=== PATIENT | female | born 1955 | race Caucasian/White ===

== ENCOUNTER → 2017-07-11 | Day surgery (SDC) | payer OTHER ==
[~2017-07-11] MED LIST: ASPI81TA82 PO; BUPIVACAINE HCL PF 0.5% 10 ML VIAL ONE; ENAL10TA7 PO; HYDR-2768 PO; ISOSULFAN BLUE 50 MG/5 ML VIAL SQ ONE; KETOROLAC TROMETHAMINE 30 MG/ML (IVP) VIAL ONE; LACTATED RINGER'S 1000 ML INJ 1,000 ML ONE; MEPERIDINE HCL 50 MG/ML VIAL ONE; MIDAZOLAM HCL 2 MG/2 ML VIAL ONE; ONDANSETRON HCL 4 MG/2 ML VIAL IV PUSH ONE; PROPOFOL 200 MG/20 ML AMP IV ONE; SODIUM CHLORIDE 0.9% INJ 10 ML ONE; VITA20003 PO; Z.0.COMMODE-3:1; Z.0.CPM; Z.0.WALKERFRONT; ceFAZolin 2 GM PREMIX 50 ML ONE; oxyCODONE/ACETAMINOPHEN 5 MG/325 MG TAB ONE
--- NOTE | 2017-07-11 15:20 | RADONCENDT ---
END OF TREATMENT SUMMARY PRIMARY REFERRING PHYSICIAN: Dr. Aislinn Chavez CC: Dr. Aislinn Chavez DIAGNOSIS: Primary C50.112 - Malignant neoplasm of central portion of left female breast, Diagnosed 06/30/2017 (Active) PRESCRIPTION AND TREATMENT: 2000 cGy to surface of applicator- TREATED PLAN FRACTIONS AND DATES: Course: One fraction delivered on 07/11/2017 TOLERANCE: Patient completed treatment without complications. 3.5 cm cone. 20 Gy to surface. FOLLOW UP PLAN: Patient to be seen in 2-4 weeks. Brennon Casillas MD 07/11/2017 3:19:40 PM This report was verified and signed electronically [facility] [address] [place] [address] RADIATION ONCOLOGY END OF TREATMENT SUMMARY Date: 07/11/2017 Patient Name: Cyn Wright Date of : 1955 Age: 61 Sex: Female
--- NOTE | 2017-07-11 15:21 | RADONCOP ---
OPERATIVE REPORT DATE OF SURGERY: 07/11/2017 REFERRING PHYSICIAN: Dr Aislinn Chavez PREOPERATIVE DIAGNOSIS: C50.112 - Malignant neoplasm of central portion of left female breast, Diagnosed 06/30/2017 (Active) POSTOPERATIVE DIAGNOSIS: C50.112 - Malignant neoplasm of central portion of left female breast, Diagnosed 06/30/2017 (Active) PROCEDURE: Intraoperative Radiation Therapy to the . SURGEON: Aislinn Chavez ANESTHESIA: General ESTIMATED BLOOD LOSS: Minimal INDICATIONS: Patient is a 61 year old female presenting with . She has elected to receive targeted intraoperative radiation therapy to the . DESCRIPTION OF PROCEDURE: Patient was taken to the operating room and placed on the table in the supine position. Following induction of general anesthesia, the and arm were prepped and draped sterilely. Ultrasound was performed of the breast to document the location of the breast malignancy. The wound was prepared for intraoperative radiation therapy. Based on the diameter of the cavity, a 3.5 cm radiation applicator was selected for the delivery of intraoperative radiation therapy. The applicator was then sterilely mounted onto the Intrabeam Stand. Retracting sutures were placed within the skin to be used to retract the skin edges away from the radiation source. The 3.5 cm Radiation applicator was then sterilely inserted into the wound. The superficial purse-string suture was tied down. Ultrasound was performed of the breast to document conformity of the surgical margins and the distance from the applicator to the skin surface (> 1.4 cm). The retracting sutures were then secured and a moistened lap pad was placed on the skin surface, followed by an external radiation barrier. Intraoperative radiotherapy was then initiated by the Radiation Oncologist. Total treatment time was 17 minutes. Upon completion of the intraoperative radiotherapy treatment, the radiation applicator, purse-string sutures and retracting sutures were removed from the wound. The wound was once again irrigated. Hemostasis was confirmed. The patient was then turned back over to the surgeon, Aislinn Chavez in stable condition for completion of surgical procedure. Brennon Casillas MD 07/11/2017 3:20:34 PM This report was verified and signed electronically [facility] [address] [place] [address] RADIATION ONCOLOGY OPERATIVE REPORT Date: 07/11/2017 Patient Name: Cyn Wright
--- NOTE | 2017-07-11 16:25 | TN ---
cc: AISLINN KRAMER DATE OF SURGERY: 07/11/2017 PRINCIPAL DIAGNOSIS Left breast cancer, clinical stage I. PROCEDURE PERFORMED Left breast needle-localized lumpectomy with intraoperative radiation therapy and left axillary sentinel lymph node biopsy. SURGEON Aislinn Kramer MD ANESTHESIA General via LMA device. INDICATION The patient is a 61-year-old female with a newly diagnosed clinical stage I, T1A 4 mm invasive ductal carcinoma at 12 o'clock 3 cm from the nipple which is close to the chest wall. She is interested in intraoperative radiation therapy and now presents for breast conservation surgery. FINDINGS AT THE TIME OF SURGERY Specimen mammogram did demonstrate an intact wire and the density and clip were within the excised tissue. Five sentinel lymph nodes were removed. #1 was not blue and had a count of 142. #2 was not blue and had a count of 111 and #3 was not blue and had a count of 65. [place] lymph node #4 had a count of 45 and was not blue and sentinel lymph node #5 had a count of 943 and was not blue. Touch prep analysis was not performed. PROCEDURE PERFORMED After informed consent was obtained and site verification was performed, the patient was brought to the radiology suite where she underwent needle localization of her previous biopsy site as well as peritumoral radionuclide injection. She was then brought to the major operating room where she underwent general anesthesia via LMA device. The left breast and arm were prepped and draped in sterile fashion and 3 ccs of half-strength Lymphazurin were injected in the subareolar left breast with a 5-minute massage. She received a single dose of IV Ancef and sequential compression hose were placed. 0.5% Marcaine plain was then used to infiltrate the periareolar left breast at 12 o'clock as well as in the axilla at the inferior aspect of the left axillary hairline. A periareolar incision was then created at 12 o'clock using sharp dissection and blunt dissection was then performed until the wire entry point through the skin was identified and secured with a hemostat. The wire was cut off at the skin with pin cutters and a 2-0 Silk transfixion suture was placed at the wire entry point into the breast tissue. However, the breast tissue was somewhat friable and the suture did not hold well. A second 2-0 Silk stitch was placed at the wire entry point into the breast tissue and careful circumferential dissection was performed using electrocautery and sharp dissection around the wire. The specimen was oriented with two sutures anteriorly, one long suture laterally, and one short suture superiorly. The specimen was sent to mammography with the findings as noted and was then sent for permanent pathologic evaluation. Hemostasis was easily obtained with electrocautery and the cavity was noted to conform to a 3-1/2 cm applicator. A 0 Prolene pursestring suture was placed in the subcutaneous tissue approximately 1 cm below the skin. The 3.5 applicator was placed in the lumpectomy cavity and ultrasound evaluation demonstrated that the superior margin was 1.4 cm, the medial margin was 2.9 cm, the lateral margin was 1.4 cm, and the superior margin was 1.2 cm. The applicator was then removed and placed in a sterile drape and secured to the Intrabeam treatment machine. The applicator was again placed in the lumpectomy cavity and the pursestring suture was secured. Two wet laps were placed around the applicator at skin level and two paez were placed around the applicator at the level of the breast skin. Intraoperative radiation therapy was then performed use utilizing the [employer] Intrabeam device. Following completion of treatment, the pursestring suture was cut and the applicator was removed. There was good hemostasis noted. Inspection of the original specimen did demonstrate that the inferior margin was close and this was sharply re-excised with a stitch on the new margin and sent as a separate permanent specimen. The wound was then closed using interrupted 3-0 Vicryl subcutaneous sutures and a 4-0 Monocryl subcuticular suture. Steri-Strips and a sterile dressing were applied. Attention was then turned to the left axilla where an incision was anesthetized at the inferior aspect of the left axillary hairline. Both sharp and electrocautery dissection were performed until the clavipectoral fascia was divided and the level I axilla was entered. There were two low level I sentinel lymph nodes which were close to the chest wall and these were circumferentially dissected free from surrounding structures using the harmonic scalpel with the counts as noted. Some more superior sentinel nodes were also circumferentially dissected free from surrounding structures using the harmonic scalpel and these were sent as sentinel lymph nodes three and four. Clarendon lymph node #5 was a small palpable nodule close to the chest wall near the axillary tail of the breast. This was circumferentially dissected free from surrounding structures using the harmonic scalpel and this had a count of 943. Some adjacent axillary tissue was also sent as a permanent specimen and hemostasis was easily obtained in the axilla with the harmonic scalpel. The wound was then closed using interrupted 3-0 Vicryl subcutaneous sutures and a 4-0 Monocryl subcuticular suture. Steri-Strips and a sterile dressing were applied. The patient tolerated the procedure well with an estimated blood loss which was minimal and she was extubated in the operating room and brought to the recovery room in good condition. All sponge and needle counts were correct at the conclusion of the case. MD JEF Madison/PAVEL /3:31 PM /3:56 PM
== END | disposition home or self-care (01) ==
LOC: ESDC 09:13
PROVIDERS: ATTEND Surgery
DX: C50.112 Malignant neoplasm of central portion of left female breast (principal)
CPT/HCPCS: 00400; 01610; 19125; 38525; 38792; 77290; 77300; 77334; 77370; 77424; 88305; 88307; J0690; J1885; J2175; J2250; J2405; J3010; J7120; Q9968; 77469

== ENCOUNTER → 2017-11-19 | Outpatient (CLI) | payer OTHER ==
[~2017-11-19] MED LIST changes: +ANAS1TAB PO; +ASPI1TAB57 PO; -BUPIVACAINE HCL PF 0.5% 10 ML VIAL ONE; +COMMODE BEDSIDE1 MI1; +D-20TAB3 PO; +ENAL10TA PO; +HYDR25TA5 PO; -ISOSULFAN BLUE 50 MG/5 ML VIAL SQ ONE; -KETOROLAC TROMETHAMINE 30 MG/ML (IVP) VIAL ONE; -LACTATED RINGER'S 1000 ML INJ 1,000 ML ONE; -MEPERIDINE HCL 50 MG/ML VIAL ONE; -MIDAZOLAM HCL 2 MG/2 ML VIAL ONE; -ONDANSETRON HCL 4 MG/2 ML VIAL IV PUSH ONE; -PROPOFOL 200 MG/20 ML AMP IV ONE; -SODIUM CHLORIDE 0.9% INJ 10 ML ONE; +WALKER/ADULT/FO1 MIS; -ceFAZolin 2 GM PREMIX 50 ML ONE; -oxyCODONE/ACETAMINOPHEN 5 MG/325 MG TAB ONE
[2017-11-19 08:54] LABS: HEMATOCRIT 41.5 % (35.0-46.0); HEMOGLOBIN 14.4 GM/DL (11.6-15.3); MEAN CELL VOLUME 92.8 FL (80.0-100.0); MEAN CORPUSCULAR HEMOGLOBIN 32.3 PG (27.0-34.0); MEAN CORPUSCULAR HGB CONC 34.7 % (32.0-36.0); MEAN PLATELET VOLUME 9.1 FL (7.0-11.0); PLATELET COUNT 277 TH/MM3 (150-450); RED BLOOD COUNT 4.47 MIL/MM3 (4.00-5.30); RED CELL DISTRIBUTION WIDTH 14.8 % (11.6-17.2); WHITE BLOOD COUNT 4.8 TH/MM3 (4.0-11.0)
[2017-11-19 08:59] LABS: BILIRUBIN, URINE NEG (NEG); BLOOD, URINE NEG (NEG); GLUCOSE,URINE NEG (NEG); KETONE, URINE NEG (NEG); MUCUS URINE FEW /lpf (OCC); NITRITE,URINE NEG (NEG); PH, URINE 6.5 (5.0-8.5); SQUAMOUS EPITHELIAL CELL URINE 1 /hpf (0-5); TRANSITIONAL EPI CELLS, URINE <1 /hpf; URINE COLOR YELLOW (YELLW/STRAW); URINE LEUKOCYTE ESTERASE SMALL (NEG)
[2017-11-19 09:06] LABS: INTERNATIONAL NORMALIZED RATIO 1.1 RATIO; PROTHROMBIN TIME - PATIENT 11.4 SEC (9.8-11.6)
[2017-11-19 09:25] LABS: ALBUMIN 4.1 GM/DL (3.4-5.0); AST (GOT) 13 U/L (15-37); BICARBONATE 31.1 MEQ/L (21.0-32.0); BLOOD UREA NITROGEN 10 MG/DL (7-18); CALCIUM 9.4 MG/DL (8.5-10.1); CHLORIDE 102 MEQ/L (98-107); CREATININE 0.94 MG/DL (0.50-1.00); GLOMERULAR FILTRATION RATE 61 ML/MIN (>89); GLUCOSE,FASTING 91 MG/DL (74-99); SODIUM (NA) 137 MEQ/L (136-145)
[2017-11-19 09:26] LABS: ALT (GPT) 23 U/L (10-53)
[2017-11-19 09:29] LABS: ALKALINE PHOSPHATASE 97 U/L (45-117); TOTAL BILIRUBIN ADULT 0.4 MG/DL (0.2-1.0); TOTAL PROTEIN 7.8 GM/DL (6.4-8.2)
--- NOTE | 2017-11-20 00:25 | EKG ---
Date Performed: 11/19/2017 Time Performed: 08:11:18 PTAGE: 62 years EKG: Sinus rhythm . rSr'(V1) - probable normal variant Septal T wave changes are nonspecific Borderline ECG PREVIOUS TRACING : 06/04/2016 08.42 Since the prior tracing, there has been no significant kaplan DOCTOR: Moe Clement Interpretating Date/Time 11/20/2017 00:24:23
== END ==
LOC: CPRE 07:51
PROVIDERS: ATTEND Surgery
DX: Z01.812 Encounter for preprocedural laboratory examination (principal); Z01.810 Encounter for preprocedural cardiovascular examination; M79.609 Pain in unspecified limb; R94.31 Abnormal electrocardiogram [ECG] [EKG]
CPT/HCPCS: 36415; 80053; 81001; 85027; 85610; 85730; 93005

== ENCOUNTER 2017-11-25 08:28 | Inpatient (IN) | payer OTHER ==
--- NOTE | 2017-11-20 18:04 | MH ---
cc: Sujatha SUTHERLAND M.D. DATE OF ADMISSION 11/25/2017 ADMISSION DIAGNOSIS Osteoarthritic degeneration left knee now being admitted for left total knee arthroplasty. HISTORY OF THE PRESENT ILLNESS This pleasant 62-year-old female being admitted today for left total knee arthroplasty due to severe painful osteoarthritic degeneration left knee. PAST MEDICAL HISTORY Other past history: 1. She has already had a right total knee in the past. 2. She has a history of hypertension. CURRENT MEDICATIONS Include: 1. Enalapril. 2. Hydrochlorothiazide. 3. Baby aspirin. PAST SURGERIES 1. The right total knee in 2016. 2. Previous surgery also includes breast cancer lumpectomy in the past. REVIEW OF SYSTEMS Noncontributory. FAMILY HISTORY Noncontributory. SOCIAL HISTORY She does not smoke or drink. ALLERGIES SHE HAS AN ALLERGY TO TRAMADOL. PHYSICAL EXAMINATION GENERAL: We find a 62-year-old female well-developed, well-nourished, alert and oriented times three complaining of pain in the left knee. VITAL SIGNS: Blood pressure 110/72, pulse 88 regular, respirations 16, temperature 98. Pulse oximetry 98% on room air. HEENT: Eyes PERRL, EOMI. Ears, nose, mouth clear. NECK: Supple. LUNGS: Clear. HEART: Regular rate. ABDOMEN: Soft. Positive bowel sounds, nontender. EXTREMITIES: Reveal an incision on the right knee from previous total knee. The left knee is tender with crepitance on range of motion. Neurovascularly intact to her toes. IMPRESSION Severe painful osteoarthritic degeneration left knee. PLAN The plan is admission for left total knee arthroplasty today. The patient given prescription for postoperative pain and anticoagulation control in the office. MD THIAGO Sagastume/KK /5:36 PM /5:48 PM
[~2017-11-25] VITALS: Ht 162.6 cm; Wt 73.5 kg
[~2017-11-25 08:28] MED LIST changes: -ASPI81TA82 PO; -ENAL10TA7 PO; -HYDR-2768 PO; -VITA20003 PO; -Z.0.COMMODE-3:1; -Z.0.CPM; -Z.0.WALKERFRONT
[2017-11-25] MEDS ORDERED: ceFAZolin INJ 1,000 MG VIAL ONE (08:57)
[2017-11-25] MEDS ORDERED: LIDOCAINE HCL 1% PF 5 ML AMPULE ONE (09:43)
[2017-11-25] MEDS ORDERED: SODIUM CHLORID 0.9% 500 ML IV PRN (09:45)
[2017-11-25] MEDS ORDERED: CHLORHEXIDINE GLUCONATE 4% SOLN 120 ML BTL TOPICAL SCH (09:45)
[2017-11-25] MEDS ORDERED: TRANEXAMIC ACID INJ 735 MG in SODIUM CHLORIDE 0.9% INJ 100 ML IV SCH ×2 (09:45→13:00)
[2017-11-25] MEDS ORDERED: POVIDONE IODINE 5% (ANTISEPSIS KIT) 4 APPLICATIONS EACH NARE PRN (09:45)
[2017-11-25] MEDS ORDERED: LACTATED RINGER'S 1000 ML IV PRN (09:45)
[2017-11-25] MEDS ORDERED: VANCOMYCIN 1000 MG/NS 250 ML (for <70 kg) IV SCH ×2 (09:45)
[2017-11-25] MEDS ORDERED: METOPROLOL TARTRATE 25 MG TAB PO PRN (09:45)
[2017-11-25] MEDS ORDERED: ceFAZolin 2 GM PREMIX 50 ML IV SCH (09:45)
[2017-11-25] MEDS ORDERED: CHLORHEXIDINE GLUCONATE 2 % 1 PACK (2 CLOTHS) TOPICAL PRN (09:45)
[2017-11-25] MEDS ORDERED: MIDAZOLAM HCL 2 MG/2 ML VIAL IV ONE (10:00)
[2017-11-25] MEDS ORDERED: EXPAREL PERI-ARTICULAR INJECTION (TOTAL VOL. 120 ML) P-ARTICULR SCH ×2 (10:00)
[2017-11-25] MEDS ORDERED: Post-op Orders (for Pharmacy) XX ONE (10:15)
[2017-11-25] MEDS ORDERED: NALOXONE HCL 0.4 MG/ML AMP IV PUSH PRN (10:15)
[2017-11-25] MEDS ORDERED: diphenhydrAMINE HCL 50 MG/ML VIAL IV PUSH PRN (10:15)
--- NOTE | 2017-11-25 10:15 | HHI.FF ---
Face to Face Verification Diagnosis: (1) Status post total left knee replacement Physical Therapy Gait training Knee: Total knee, Protocol: Left, Gait training, Full weight bearing Canvas Knee Splint: When in bed & 2 pillows btw thighs Nursing RN: 3 days/week x 2 weeks Nursing: Dressing changes Dressing Changes: Daily dressing change, 4x4s I have seen patient Cyn Wright on 11/25/17. My clinical findings support the need for the requested home health care services because: Limited ability to care for self High risk of falls I certify that my clinical findings support that this patient is homebound because: Unsteady gait/balance Sujatha Wilson MD Nov 25, 2017 10:15
[2017-11-25] MEDS ORDERED: CPMMACHINE (10:18)
[2017-11-25] MEDS ORDERED: WALKER WHEELS/F1 MIS (10:18)
[2017-11-25] MEDS ORDERED: ADJUSTABLE COMM1 MIS (10:18)
[2017-11-25] MEDS ORDERED: DEXAMETHASONE SOD PHOS 20 MG/5 ML VIAL ONE (10:38)
[2017-11-25] MEDS ORDERED: ACETAMINOPHEN 325 MG TAB PO PRN (11:00)
[2017-11-25] MEDS ORDERED: ONDANSETRON HCL 4 MG/2 ML VIAL IVP PRN (11:00)
[2017-11-25] MEDS ORDERED: PROPOFOL 200 MG/20 ML AMP IV ONE (12:00)
[2017-11-25] MEDS ORDERED: PHENYLEPH/NS 1000 MCG/10 ML SYR IV ONE (12:00)
[2017-11-25] MEDS ORDERED: ONDANSETRON HCL 4 MG/2 ML VIAL IV ONE (12:00)
[2017-11-25] MEDS ORDERED: ePHEDrine/NS 25 MG/5 ML SYRINGE IV ONE (12:00)
[2017-11-25] MEDS ORDERED: LIDOCAINE HCL 1% PF 5 ML SYRINGE OTHER ONE (12:00)
--- NOTE | 2017-11-25 13:29 | MP ---
cc: Sujatha WILSON M.D. PREOPERATIVE DIAGNOSIS Osteoarthritic degeneration, left knee. POSTOPERATIVE DIAGNOSIS Osteoarthritic degeneration, left knee. SURGERY PERFORMED Left total knee arthroplasty using Consensus components, size 4 femur, 2 tibia, 2 patella and 10 insert with two batches of DePuy cement. SURGEON Dr. Wilson. HEDGE FUND ACCOUNTANT JEANNA Toribio. ANESTHESIA General intubation and block. PROCEDURE After successful induction of anesthesia, the patient is placed on the operating room table in the supine position. The knee is prepped and draped in the usual manner. A tourniquet is inflated at the upper thigh and set to 300 mmHg pressure after exsanguination of the lower extremity. A longitudinal incision is made extending from 3 inches proximal to the superior pole of the patella, across the patella in longitudinal fashion, and down past the insertion of the tibial tubercle into the proximal tibia. The incision is carried down through subcutaneous tissue along the medial aspect of the patella and retinaculum, down through the capsule to expose the knee joint. The patella and patellar tendon are freed up enough to allow the patella to be inverted and retracted off the lateral side of the knee joint. The knee joint is left exposed. Small osteophytes are removed. All soft tissue is removed to allow proper position of the femoral and tibial cutting jig guide. The first femoral jig is then inserted along the distal end of the femur after first measuring to decide whether this is a small, medium, or large component. The notch is then drilled and the tibial cutting guide inserted into the femoral cutting guide, along with the ankle brace to allow for proper measurement of the tibial cutting surface that needed to be resected. Pins are inserted into the tibial cutting jig and femoral cutting jig to hold them in place. An oscillating saw is then used to resect the surface of the tibia. The surface of the tibia is then completely removed using sharp and blunt dissection. The anterior and posterior cuts of the femur are then made as well using an oscillating saw through the cutting guide. All guides are then removed and the varus/valgus angulation cutting guide applied to the femur for proper measurement of the proper amount of valgus. The anterior cutting guide for the femur is then inserted at the anterior femoral cuts made. Next, the first block trial is inserted into the femur to allow for proper condyle drill holes to be made which are then made followed by removal of the bone between the condyles using an oscillating saw as well as the bone removed at the most posterior surface of the condyle. After this, this guide is removed and the chamfer cuts made using the chamfer cutting guide from both anterior and posterior. Next, the femoral trial is then inserted, the tibial surface reflected anterior to expose the tibial surface and a tibial stem guide is inserted after first measuring for a standard, standard plus, large, or large plus surface to be used. After the stem is impacted the trial tibial surface is applied followed by the trial meniscal components. After full range of motion is found with the appropriate length meniscal components varying the patella is prepared by resecting the posterior aspect of the patella using an oscillating saw, inserting a trial. The trial is then removed and the cruciate cutting guide applied using the bur to cut the cruciate cuts. After cruciate cuts are made all trials are removed. The wound is irrigated copiously with antibiotic solution and Water Pik and the actual components inserted into place using Consensus components, size 4 femur, 2 tibia, 2 patella and 10 insert with two batches of Quoterolleruy cement. After the cement has hardened and the components are found to have full range of motion with no instability, the tourniquet is deflated, total tourniquet time being 41 minutes at 300 mmHg pressure. 120 cc of Exparel is used around the knee joint for extra pain control. The wound again is irrigated copiously with antibiotic solution, meticulous hemostasis achieved. The deep fascia was closed with running #2 Quill, subcutaneous tissue approximated using interrupted and running 2-0 and 3-0 Monocryl suture. Steri-Strips, sterile dressing and a knee immobilizer were applied. No drain was utilized. Estimated blood loss was 100 cc. Sponge and suture counts were recorred. The patient tolerated the procedure well and left the Operating Room in satisfactory condition. JEANNA Toribio was present during the entire procedure to include patient positioning and the procedure the medical necessity of the nurse practitioner pizza hut assistant was indicated in this case due to the surgical complexity of the case itself. During the surgical case the process development technician was working the back table while my pizza hut assistant JEANNA was directly assisting me. Sujatha Wilson MD JRR/MERI /1:12 PM /1:14 PM
[2017-11-25] MEDS ORDERED: DO NOT ADM ANY ANTICOAGULANT DRUGS PRN (13:35)
--- NOTE | 2017-11-25 13:40 | HHI.PR ---
Immediate Post Op Note Procedure Date: Nov 25, 2017 Pre Op Diagnosis: severe painful osteoarthritic degeneration left knee. Post Op Diagnosis: severe painful osteoarthritic degeneration left knee. Surgeon: Chepe Wilson MD Extrusion Utility Worker(s): Teri MEEKS Procedure: Left total Knee Arthroplasty Specimen(s) removed: none Estimated blood loss: 100 cc Anesthesia: General Drains: None IVF Urinary Output (mLs): 0 (no parisi) Tourniquet time (min at mmHg) 43 mins at 300mmHg Patient to: PACU Patient Condition: Good Implant/Devices: SEE IMPLANT LOG (if applicable) Date/Time of Procedure: SEE SURGICAL CARE RECORD Teri Juan Nov 25, 2017 13:40
[2017-11-25] MEDS ORDERED: *morphine SULFATE 4 MG/ML PERIprocedure ONLY ONE ×3 (13:42→14:06)
[2017-11-25] MEDS: LACTATED RINGER'S 1000 ML INJ 1,000 ML IV SCH ×2 (13:50→19:18)
[2017-11-25] MEDS: TRANEXAMIC ACID INJ 735 MG in SODIUM CHLORIDE 0.9% INJ 100 ML IV SCH ×2 (14:15→14:55)
--- NOTE | 2017-11-25 14:56 | RADRPT ---
EXAM DATE/TIME: 11/25/2017 13:51 [facility] COMPARISON: No previous studies available for comparison. INDICATIONS : Post operative left knee. MEDICAL HISTORY : None. SURGICAL HISTORY : ORIF right knee. ENCOUNTER: Initial ACUITY: 1 day PAIN SCORE: Non-responsive. LOCATION: Left knee. FINDINGS: AP and lateral views of the knee following arthroplasty reveals a prosthesis in anatomic alignment. F racture is not appreciated. Surgical drain is evident CONCLUSION: Status post total knee arthroplasty. James Browning MD FACR on November 25, 2017 at 14:54 Board Certified Radiologist. This report was verified electronically.
[2017-11-25] MEDS: ACETAMINOPHEN/HYDROcodone 325 MG/7.5 MG TAB PO PRN ×2 (15:20→19:18)
[2017-11-25 15:43] VITALS: BP 113/76; PULSE 85; RESP 18; TEMP 95.5; O2SAT 98
[2017-11-25 21:20] VITALS: BP 105/58; PULSE 76; RESP 18; TEMP 96.8; O2SAT 95
[2017-11-25 23:25] VITALS: BP 99/68; PULSE 87; RESP 18; TEMP 96.5; O2SAT 95
[2017-11-26] VITALS (7 sets, daily range): BP systolic 99–148; BP diastolic 57–86; PULSE 65–93; RESP 18; TEMP 96.5–97.4; O2SAT 95–100
[2017-11-26] MEDS: TEMAZEPAM 15 MG CAP PO PRN ×2 (01:02→22:50)
[2017-11-26] MEDS: LACTATED RINGER'S 1000 ML INJ 1,000 ML IV SCH ×2 (01:03→20:49)
[2017-11-26] MEDS: ACETAMINOPHEN/HYDROcodone 325 MG/7.5 MG TAB PO PRN ×6 (01:03→22:50)
[2017-11-26 07:51] LABS: HEMATOCRIT 34.8 % (35.0-46.0); HEMOGLOBIN 11.8 GM/DL (11.6-15.3)
[2017-11-26] MEDS: HYDROCHLOROTHIAZIDE 25 MG TAB PO SCH (09:00)
[2017-11-26] MEDS: ENALAPRIL MALEATE 10 MG TAB PO SCH (09:00)
[2017-11-26] MEDS: CHOLECALCIFEROL (VIT D3) 1000 UNIT TAB PO SCH (09:54)
[2017-11-26] MEDS: ANASTROZOLE 1 MG TAB PO SCH (09:55)
--- NOTE | 2017-11-26 11:15 | PD.ORT.PN ---
Subjective Subjective Remarks Pt complaining of pain in knee today. Objective Vitals Vital Signs Date Time Temp Pulse Resp B/P (MAP) Pulse Ox O2 Delivery O2 Flow Rate FiO2 11/26/17 08:00 96.6 65 18 109/72 (84) 100 11/26/17 04:25 97.0 70 18 99/57 (71) 95 11/25/17 23:25 96.5 87 18 99/68 (78) 95 11/25/17 21:20 96.8 76 18 105/58 (74) 95 11/25/17 19:15 95 Nasal Cannula 2.00 11/25/17 15:43 95.5 85 18 113/76 (88) 98 11/25/17 14:45 97.4 80 12 121/70 (87) 98 Nasal Cannula 2 11/25/17 14:30 83 16 124/97 (106) 97 Nasal Cannula 2 11/25/17 14:15 74 14 116/65 (82) 96 Nasal Cannula 2 11/25/17 14:00 85 14 125/67 (86) 96 Nasal Cannula 2 11/25/17 13:45 81 15 116/81 (93) 96 Nasal Cannula 2 11/25/17 13:36 97.6 88 12 122/75 (91) 97 Nasal Cannula 2 I/O 11/25/17 11/25/17 11/25/17 11/26/17 11/26/17 11/26/17 07:00 15:00 23:00 07:00 15:00 23:00 Intake Total 1962.35 ml 240 ml 2180 ml Output Total 100 ml Balance 1862.35 ml 240 ml 2180 ml Intake Oral 30 ml 240 ml 480 ml IV Total 132.35 ml 1700 ml Other 1800 ml Output Estimated Blood Loss 100 ml # Voids 0 2 2 # Bowel Movements 0 0 Result Diagram: 11/26/17 0417 Imaging Last 48 hours Impressions Knee X-Ray 11/25/17 1012 Signed Impressions: Service Date/Time: Saturday, November 25, 2017 13:51 - CONCLUSION: Status post total knee arthroplasty. James Browning MD FACR Objective Remarks Dressing dry and intact. Sitting up in chair. No calf tenderness. NV intact to toes. Assessment & Plan Ortho Post Op Day #: 1 Problem List: Assessment and Plan IM pain meds prn. Cont wound care and PT. Wilson,J. Moshe Moshe MD Nov 26, 2017 11:15
[2017-11-26] MEDS: MORPHINE SULFATE 4 MG/ML INJ IV PUSH PRN ×3 (11:17→20:43)
[2017-11-26] MEDS: APIXABAN 2.5 MG TABLET PO SCH ×2 (13:54→20:47)
[2017-11-26] MEDS: DOCUSATE SODIUM 100 MG CAP PO SCH (20:47)
[2017-11-26] MEDS: MULTIVITAMINS/MINERALS THERAPEUTIC TAB PO SCH (20:47)
[2017-11-27 00:05] VITALS: BP 136/86; PULSE 87; RESP 16; TEMP 96.6; O2SAT 95
[2017-11-27] MEDS: ACETAMINOPHEN/HYDROcodone 325 MG/7.5 MG TAB PO PRN ×5 (03:39→22:43)
[2017-11-27 04:38] VITALS: O2SAT 98
[2017-11-27 05:39] LABS: HEMOGLOBIN 11.8 GM/DL (11.6-15.3)
[2017-11-27 07:45] VITALS: BP 130/73; PULSE 110; RESP 18; TEMP 99; O2SAT 92
[2017-11-27] MEDS: DOCUSATE SODIUM 100 MG CAP PO SCH ×2 (07:54→22:43)
[2017-11-27] MEDS: APIXABAN 2.5 MG TABLET PO SCH ×2 (07:55→22:44)
[2017-11-27] MEDS: ANASTROZOLE 1 MG TAB PO SCH (07:55)
[2017-11-27] MEDS: CHOLECALCIFEROL (VIT D3) 1000 UNIT TAB PO SCH (07:56)
[2017-11-27] MEDS: MULTIVITAMINS/MINERALS THERAPEUTIC TAB PO SCH ×2 (07:56→22:44)
[2017-11-27] MEDS: HYDROCHLOROTHIAZIDE 25 MG TAB PO SCH (07:56)
[2017-11-27] MEDS: ENALAPRIL MALEATE 10 MG TAB PO SCH (07:56)
--- NOTE | 2017-11-27 07:57 | PD.ORT.PN ---
Subjective Subjective Remarks Pt complaining of pain in knee today but better than yesterday. Objective Vitals Vital Signs Date Time Temp Pulse Resp B/P (MAP) Pulse Ox O2 Delivery O2 Flow Rate FiO2 11/27/17 07:45 99.0 110 18 130/73 (92) 92 11/27/17 04:38 98 11/27/17 00:05 96.6 87 16 136/86 (103) 95 11/26/17 20:50 97.4 83 18 134/84 (101) 95 11/26/17 20:50 97.4 11/26/17 20:00 Room Air 11/26/17 17:39 95 21 11/26/17 16:00 96.5 83 18 113/83 (93) 98 11/26/17 12:00 97.0 93 18 148/86 (106) 100 11/26/17 08:28 97 Nasal Cannula 2.00 11/26/17 08:00 96.6 65 18 109/72 (84) 100 I/O 11/26/17 11/26/17 11/26/17 11/27/17 11/27/17 11/27/17 07:00 15:00 23:00 07:00 15:00 23:00 Intake Total 2180 ml 720 ml 480 ml 480 ml Balance 2180 ml 720 ml 480 ml 480 ml Intake Oral 480 ml 720 ml 480 ml 480 ml IV Total 1700 ml # Voids 2 5 2 3 # Bowel Movements 0 0 0 0 Result Diagram: 11/27/17 0444 Imaging Last 48 hours Impressions Knee X-Ray 11/25/17 1012 Signed Impressions: Service Date/Time: Saturday, November 25, 2017 13:51 - CONCLUSION: Status post total knee arthroplasty. James Browning MD FACR Objective Remarks Dressing dry and intact. Sitting up in bed. No calf tenderness. NV intact to toes. Assessment & Plan Ortho Post Op Day #: 2 Problem List: Assessment and Plan IM pain meds prn. Cont wound care and PT. Home tomorrow. Sujatha Wilson MD Nov 27, 2017 07:57
[2017-11-27] MEDS ORDERED: BACITRACIN OINT 0.9 GM PKT TOP PRN (10:15)
[2017-11-27] MEDS: MORPHINE SULFATE 4 MG/ML INJ IV PUSH PRN (11:15)
[2017-11-27 12:00] VITALS: BP 106/69; PULSE 99; RESP 18; TEMP 97.2; O2SAT 94
[2017-11-27] MEDS: LACTATED RINGER'S 1000 ML INJ 1,000 ML IV SCH ×2 (12:12→22:44)
[2017-11-27 16:00] VITALS: BP 104/71; PULSE 103; RESP 18; TEMP 99; O2SAT 93
[2017-11-27 20:00] VITALS: BP 103/71; PULSE 95; RESP 17; TEMP 97.9; O2SAT 96
[2017-11-27] MEDS: TEMAZEPAM 15 MG CAP PO PRN (22:43)
[2017-11-28] VITALS: BP 98/62; PULSE 91; RESP 15; TEMP 97.6; O2SAT 96
[2017-11-28 04:00] VITALS: BP 112/84; PULSE 99; RESP 15; TEMP 98; O2SAT 94
[2017-11-28] MEDS: ACETAMINOPHEN/HYDROcodone 325 MG/7.5 MG TAB PO PRN ×3 (04:30→12:11)
[2017-11-28 08:00] VITALS: BP 106/79; PULSE 98; RESP 18; TEMP 97.9; O2SAT 98
[2017-11-28] MEDS: HYDROCHLOROTHIAZIDE 25 MG TAB PO SCH (08:23)
[2017-11-28] MEDS: ENALAPRIL MALEATE 10 MG TAB PO SCH (08:23)
[2017-11-28] MEDS: DOCUSATE SODIUM 100 MG CAP PO SCH (08:23)
[2017-11-28] MEDS: ANASTROZOLE 1 MG TAB PO SCH (08:23)
[2017-11-28] MEDS: CHOLECALCIFEROL (VIT D3) 1000 UNIT TAB PO SCH (08:23)
[2017-11-28] MEDS: APIXABAN 2.5 MG TABLET PO SCH (08:24)
[2017-11-28] MEDS: LACTATED RINGER'S 1000 ML INJ 1,000 ML IV SCH (08:25)
[2017-11-28] MEDS: MULTIVITAMINS/MINERALS THERAPEUTIC TAB PO SCH (08:25)
--- NOTE | 2017-11-28 11:53 | PD.ORT.PN ---
Subjective Subjective Remarks Pt complaining of much less pain in knee today. Objective Vitals Vital Signs Date Time Temp Pulse Resp B/P (MAP) Pulse Ox O2 Delivery O2 Flow Rate FiO2 11/28/17 09:25 21 11/28/17 08:00 97.9 98 18 106/79 (88) 98 11/28/17 04:00 98.0 99 15 112/84 (93) 94 11/28/17 00:00 97.6 91 15 98/62 (74) 96 11/27/17 20:00 97.9 95 17 103/71 (82) 96 11/27/17 17:57 21 11/27/17 16:00 99.0 103 18 104/71 (82) 93 11/27/17 12:00 97.2 99 18 106/69 (81) 94 I/O 11/27/17 11/27/17 11/27/17 11/28/17 11/28/17 11/28/17 07:00 15:00 23:00 07:00 15:00 23:00 Intake Total 480 ml 960 ml 1600 ml 900 ml Balance 480 ml 960 ml 1600 ml 900 ml Intake Oral 480 ml 960 ml 1600 ml 900 ml # Voids 3 4 6 2 # Bowel Movements 0 0 2 1 Result Diagram: 11/27/17 0444 Imaging Last 48 hours Impressions Knee X-Ray 11/25/17 1012 Signed Impressions: Service Date/Time: Saturday, November 25, 2017 13:51 - CONCLUSION: Status post total knee arthroplasty. James Browning MD FACR Objective Remarks Dressing dry and intact. Sitting up in bed. No calf tenderness. NV intact to toes. Assessment & Plan Ortho Post Op Day #: 3 Problem List: Assessment and Plan PO pain meds prn. Cont wound care and PT. Home today. Sujatha Wilson MD Nov 28, 2017 11:53
--- NOTE | 2017-11-28 11:59 | HHI.DS ---
Discharge Summary Admission Date Nov 25, 2017 at 08:28 Discharge Date: Nov 28, 2017 Admitting Diagnosis Osteoarthritic degeneration left knee Diagnosis: (1) Status post total left knee replacement Diagnosis: Principal ICD Codes: Z96.652 - Presence of left artificial knee joint Brief History This is a 62 year old female patient CBC/BMP: 11/27/17 0444 Significant Findings Laboratory Tests Test 11/26/17 04:17 11/27/17 04:44 Hematocrit 34.8 % (35.0-46.0) 34.0 % (35.0-46.0) PE at Discharge Dressing dry and intact. Sitting up in bed. No calf tenderness. NV intact to toes. Hospital Course Patient underwent a left total knee arthroplasty on day of admission she received a course of prophylactic IV antibiotics and within 23 hours started on anticoagulation therapy. She continued to improve tolerating food and fluid well and remaining afebrile with stable vital signs and tolerating by mouth pain meds. She was discharged on the third postoperative day in good condition with instruction for home healthcare and physical therapy and follow-up in the office. Pt Condition on Discharge: Good Discharge Disposition: Disch w/ Home Health Serv Discharge Instructions Diet Instructions: As Tolerated, No Restrictions Activities You Can Perform: Full Weight Bearing, Shower Only-No Bath Activities to Avoid: Bathing, Driving Sujatha Wilson MD Nov 28, 2017 11:59
[2017-11-28 12:00] VITALS: BP 120/81; PULSE 84; RESP 18; TEMP 96.5; O2SAT 96
== END 2017-11-28 15:01 | disposition home health service (06) | DRG 470 ==
LOC: HSDI 08:28 → N06B 15:02
PROVIDERS: ADMIT Surgery; ATTEND Surgery
PROC: 3E0T3BZ Introduction of Anesthetic Agent into Peripheral Nerves and Plexi, Percutaneous Approach (ICD-10-PCS; 2017-11-25)
PROC: 0SRD0J9 Replacement of Left Knee Joint with Synthetic Substitute, Cemented, Open Approach (ICD-10-PCS; principal; 2017-11-25 11:19)
DX: M17.12 Unilateral primary osteoarthritis, left knee (principal); I10 Essential (primary) hypertension; F41.9 Anxiety disorder, unspecified; E78.00 Pure hypercholesterolemia, unspecified; I73.9 Peripheral vascular disease, unspecified; G47.30 Sleep apnea, unspecified; Z96.651 Presence of right artificial knee joint; Z79.82 Long term (current) use of aspirin; Z85.3 Personal history of malignant neoplasm of breast
CPT/HCPCS: 73560; 85014; 85018; 86850; 86900; 86901; 94150; C1776; C9290; J0690; J1100; J2250; J2270; J2370; J2405; J3010; J3370; J7050; J7120; L1830

== ENCOUNTER 2018-07-30 06:27 | Observation (INO) ==
[2018-07-30] MEDS ORDERED: Vancomycin Inj 1,000 MG in Sodium Chlor 0.9% Inj 250 ML IV.SIG SCH (07:00)
[2018-07-30] MEDS ORDERED: Chlorhexidine Gluconate 2% 1 Pack (2 Cloths) TOPICAL ONE (07:15)
[2018-07-30] MEDS ORDERED: Metoprolol Tartrate 25 MG Tablet PO ONE (07:15)
[2018-07-30] MEDS ORDERED: Sodium Chlor 0.9% Inj 500 ML IV.CONT ONE (07:15)
[2018-07-30] MEDS ORDERED: Sod Chloride 0.9% Inj 1,000 ML IV.SIG SCH (07:15)
[2018-07-30] MEDS ORDERED: Gelatin Size 100 Topical Foam ONE (07:17)
[2018-07-30] MEDS ORDERED: Thrombin Topical Soln 5,000 UNIT Vial TOPICAL ONE (07:17)
[2018-07-30] MEDS ORDERED: Sodium Chlor 0.9% Inj 250 ML ONE (07:41)
[2018-07-30] MEDS ORDERED: Propofol Inj 500 MG/50 ML Vial ONE (08:04)
[2018-07-30] MEDS ORDERED: fentaNYL Citrate Inj 250 MCG/5 ML Ampul ONE (08:15)
[2018-07-30] MEDS ORDERED: Electrolytes R/Dextrose 5% Inj 1,000 ML IV.CONT ONE (08:26)
[2018-07-30] MEDS ORDERED: Glycopyrrolate Inj 1 MG/5 ML Syringe IV.PUSH ONE (08:26)
[2018-07-30] MEDS ORDERED: Lidocaine PF 1% Inj 5 ML Syringe OTHER ONE (08:26)
[2018-07-30] MEDS ORDERED: Phenylephrine/NS 1000 MCG/10ML Syringe IV.PUSH ONE (08:26)
[2018-07-30] MEDS ORDERED: Neostigmine Inj 5 MG/5 ML Syringe IV.PUSH ONE (08:26)
[2018-07-30] MEDS ORDERED: ceFAZolin 2 GM Premix Inj 2 GM/50 ML PIGGYBACK IV.SIG ONE (08:34)
[2018-07-30] MEDS ORDERED: Dexmedetomidine Inj 200 MCG/2 ML Vial ONE (09:53)
[2018-07-30] MEDS ORDERED: Bisacodyl 10 MG Supp RECTAL PRN (11:46)
--- NOTE | 2018-07-30 11:55 | P.OP ---
Preoperative Diagnosis: cervical spinal stenosis with radiculopathy Postoperative Diagnosis: cervical spinal stenosis with radiculopathy Date of procedure: 07/30/18 Procedure: C5-6, C6-7 anterior cervical discectomy, interbody arthodhesis using PEEK cage filled with autologous bone graft, Simplicity plate and screws. Anesthesia: BRODYA Surgeon: Jose R Toney MD Shipper: Rekha Guzman Pathology: none sent Operation and Findings: INDICATIONS FOR THE PROCEDURE Ms Wright is a 63 year-old female who presented with intractable neck pain and clinical evidence of C6 and C7 upper extremity radiculopathy. She was found to have significant spondylosis with stenosis. She has failed maximum nonsurgical management including multiple modalities of conservative treatment as well as pain management interventions by an interventional pain specialist. A surgical decompression and arthrodhesis were indicated. The [id number] details of the procedure, indications, alternatives, risks and potential complications were fully discussed with the patient. The patient fully understood. All The questions were answered. No guarantees were given. The patient voiced requesting the procedure and provided informed consents. The patient was offered the alternative of delaying the procedure and continuing with nonsurgical management. DETAILS OF THE SURGICAL PROCEDURE After the induction of general anesthesia, endotracheal intubation was performed. A Candelario catheter, bilateral LILIA hose, and sequential compression devices were placed and kept throughout the procedure. Placement of electrodes for neurophysiological monitoring of the somato sensorial evoked potentials. motor evoked potentials, and EMG as well as laryngeal nerve monitoring was achieved. The patient was positioned supine on a Master table with the head over a gel doughnut. All pressure points were carefully padded with eggcrate mattress. The eyes were tapped shut after ointment was applied by the anesthesiologist to prevent corneal abrasion. A Sarah hugger was placed over the exposed lower body to maintain control of the core body temperature. The electrophysiological team placed the needles and electrodes in their proper location and baseline SSEP's and motor evoked potentials were registered prior and after positioning and endotracheal intubation. The anterior cervical region was prepped and draped in the usual sterile fashion. A localizing x-ray was performed with a C-arm. The surgical procedure was performed in several steps as follow: SURGICAL APPROACH A skin incision was made along the inferior cervical crease with a #10 blade. The dissection was carried out through the platysma exposing the sternocleidomastoid muscle. The cervical spine was approached following the fascial layers of the neck just medial to the anterior border of the sternocleidomastoid and carotid sheath by a combination of sharp and dull dissection. The omohyoid muscle was identified and carefully dissected laterally and the deep cervical fascia was carefully opened. The longus colli muscles were retracted to each side of the midline. A marker was placed at the disc space C5-6 and a cross-table lateral x-ray performed with a C-arm. SURGICAL DECOMPRESSION In order to decompress the anterior surface of the spinal cord it was necessary to preform a microsurgical resection of the disk at C5-6 and C6-7. At this point in the procedure the operating microscope was draped in the usual sterile fashion and brought to the field. The rest of the surgical procedure was performed using microdissection technique with the exception of the closure. Under the operative microscopic, a self-retaining retractor was placed underneath the longus colli muscle. Anterior osteophite spurs werte carefully removed with the Leksell. The annulus at C5-6 and C6-7 were incised with a #15 blade and microdiscectomy was then carefully carried out using angled curets and pituitary forceps. There were osteophitic/disk complexes mass effect and compression of the dural sac and nerve roots. The posterior longitudinal ligament was then elevated with an angled curet and incised with a 15 bladed knife. A careful resection of the posterior longitudinal ligament was carried out using a thin footplate 2 mm Kerrison. A nerve hook was used to assess the epidural space behind the vertebral bodies C5, C6, and C7 in search for residual disk fragments. The margins of the posterior endplates at C5-6 and C6- 7 were carefully drilled and undercut with a TPS drill under high magnification. The decompression was then carried out laterally, and a bilateral foraminotomy was performed with a 2mm thin foot Kerrison. Then the vertebral bodies above and below the disk space were undercut using a 2 mm thin foot Kerrison. The epidural space was the systematically assessed with a nerve hook in search for disk fragments. An excellent decompression was achieved in both, the dural sac and bilateral exiting nerve roots. The incision was then irrigated with a large amount of antibiotic solution INTERBODY ARTHRODHESIS In order to avoid collapse of the disk space which would result in bilateral foraminal stenosis, and to increase the chances of a successful fusion, it was necessary to place an interbody cage filled with autologous bone. At this point of the procedure, the superior and inferior endplates were then evenly decorticated with a TPS drill. The use of a drill in combination with a curette allowed me to systematically remove the cartilaginous endplates, exposing healthy bone for the interbody arthrodesis. Fourteen millimeters distraction pins were then placed at the vertebral bodies adjacent to the disk space, and gentle distraction was applied. The size of the interbody cage was then assessed using different size spacers, and a rasp was used to ensure no residual cartilage. A PEEK cage of the appropriate size was selected, and the interbody arthrodesis was then preformed by carefully impacting a PEEK cage filled with autologous bone graft to the disc spaces C5-6 and C6-7. An excellent position of the cage was achieved. This was was confirmed anatomically by feeling the space posterior to the implant and distance to the anterior surface of the dural sac. Radiological confirmation of the position was performed with a cross lateral xray performed with the C-arm. INTERNAL INSTRUMENTAL FIXATION Once that the interbody device was in an appropriate position, it was necessary to stabilize the spine with anterior instrumentation. Anterior instrumentation has demonstrated to increase the rate of fusion, accelerate the patient's recovery, and decrease the rate of failed interbody grafts. At this point of the procedure, the distance between the vertebral bodies was carefully measures, and a Simplicity plate was brought to the field and presented in front of the vertebral bodies C5, C6, and C7. Culinary Arts Instructor holes were then drilled using the TPS drill, and the plate was then secured to the spine using self-drilling, self-tapping screws. Initially, the inferior right screw was inserted, followed by placement of the contralateral upper screw. The remanding screws were sequentially placed in a contra-lateral fashion. A proper purchase was achieved with all screws and the position of the cage, plate and screws, and alignment of the spine was assessed anatomically by direct visualization, and radiologically by performing a cross lateral xray of the cervical spine with the C-arm. CLOSURE The incision was irrigated with several liters of antibiotic solution. Hemostasis was achieved with a bipolar. The screws were locked to prevent backing out. A 7 mm Master-Ruiz drain was left in the prevertebral space and externalized through a separate stab incision. The incision was then closed in layers. 3-0 Vicryl with interrupted sutures was used to close the platysma and subcutaneous tissue. The skin was closed with 4-0 running subcuticular Vicryl and glue was applied to the skin. The drain was secured with a 3-0 nylon. At the end of the procedure the sponge, needle and instrument counts were all correct. The estimated blood loss was less than 50 cc. No blood transfusion was given. No intraoperative complications occurred. The patient received prophylactic antibiotics. The patient was then extubated and transferred to the recovery room in stable condition.
[2018-07-30] MEDS ORDERED: Morphine Inj 4 MG/ML Vial ONE (12:55)
[2018-07-30] MEDS ORDERED: *morphine SULFATE 10 MG/ML PERIprocedure ONLY ONE (12:55)
--- NOTE | 2018-07-30 13:11 | XR ---
EXAM DATE: 07/30/2018 12:00 AM EDT AGE/SEX: 63 years / Female INDICATIONS: Herniated disk, hardware placement CLINICAL DATA: This is the patient's initial encounter. Patient reports that signs and symptoms have been present for 1 day and indicates a pain score of Nonresponsive. MEDICAL/SURGICAL HISTORY: None. None. COMPARISON: No prior exams available for comparison. CONCLUSION: Fluoroscopic images demonstrate placement of anterior fusion plate C5-C7 with intervertebral disc dev ices. Electronically signed by: Bi Thompson MD 07/30/2018 1:09 PM EDT
[2018-07-30] MEDS: ceFAZolin 2 GM Premix Inj 2 GM/50 ML PIGGYBACK IV.SIG SCH (16:30)
[2018-07-30] MEDS: Senna/Docusate Sodium 8.6/50 MG Tablet PO SCH (21:13)
[2018-07-30] MEDS ORDERED: HYDROmorphone PF Inj 2 MG/ML Vial IV.PUSH PRN (22:36)
[2018-07-31] MEDS: ceFAZolin 2 GM Premix Inj 2 GM/50 ML PIGGYBACK IV.SIG SCH ×2 (01:43→08:37)
[2018-07-31] MEDS: Senna/Docusate Sodium 8.6/50 MG Tablet PO SCH (08:35)
[2018-07-31] MEDS ORDERED: Anastrozole 1 MG Tablet PO SCH (09:00)
[2018-07-31] MEDS ORDERED: hydroCHLOROthiazide 25 MG Tablet PO SCH (09:00)
[2018-07-31 09:23] VITALS: BP 119/80; PULSE 63; TEMP 97.7; O2SAT 97
--- NOTE | 2018-07-31 09:55 | P.DS ---
Date of admission: 07/30/18 12:38 Primary care physician: Rey Arenas MD Brief History from admission: Ms Wright is a 63 year-old female who presented with intractable neck pain and clinical evidence of C6 and C7 upper extremity radiculopathy. She was found to have significant spondylosis with stenosis. She has failed maximum nonsurgical management including multiple modalities of conservative treatment as well as pain management interventions by an interventional pain specialist. A surgical decompression and arthrodesis were indicated. DS: Medications - Discharge Medications Prescriptions: hydrocodone-acetaminophen 2 tab PO Q4-6H PRN #30 tab PRN Reason: Pain Scale 6 To 10 DS: Summary Hospital Course: Ms. Wright is a 63 year old female who underwent a C5-6, C6-7 anterior cervical discectomy, interbody arthodhesis using PEEK cage filled with autologous bone graft, Simplicity plate and screws for cervical spinal stenosis with radiculopathy on 07/30/18. Her surgery went well without complications. Her RALPH drain removed and she discharged home. - Time Spent with Patient Total time spent providing and/or coordinating discharge services: Less than 30 minutes - Quality: VTE Deep Vein Thrombosis/Pulmonary Embolism Present on Admission: No Exam Vital signs: Vital Signs 07/30/18 12:17 07/30/18 12:30 07/30/18 12:45 Temperature 98.3 F Pulse Rate 77 71 71 Respiratory Rate 14 14 Blood Pressure 99/66 L 103/66 105/65 Pulse Oximetry 98 100 100 07/30/18 13:00 07/30/18 13:15 07/30/18 13:45 Temperature 98.4 F Pulse Rate 76 59 L 69 Respiratory Rate 14 14 14 Blood Pressure 110/73 100/68 102/60 Pulse Oximetry 100 100 100 07/30/18 16:00 07/30/18 18:04 07/30/18 20:00 Temperature 98.0 F 97.1 F L Pulse Rate 93 H 82 Respiratory Rate 14 18 20 Blood Pressure 101/64 107/63 Pulse Oximetry 98 95 07/31/18 00:00 07/31/18 04:00 07/31/18 08:00 Temperature 98.2 F 98.3 F 97.7 F Pulse Rate 64 87 63 Respiratory Rate 20 20 20 Blood Pressure 98/64 L 116/71 119/80 Pulse Oximetry 96 95 97 Intake & Output 10/08/0707/31/18 07/31/18 18:59 06:59 18:59 Intake Total 1999 / 1999 1890 / 1890 1000 / 1000 Output Total 1100 / 1100 1085 / 1085 Balance 900 / 900 805 / 805 1000 / 1000 Weight 73.8 kg Intake: IV 300 / 300 1050 / 1050 1000 / 1000 NS + KCl 20 mEq Inj 1,000 ML @ 1000 / 1000 1000 / 1000 100 mls/hr IV.CONT .Q10H VIRGILIO Rx #:[id number] Vancomycin Inj 1,000 MG In NS 250 / 250 Inj 250 ML @ 250 mls/hr IV.SIG RESEARCH SUPPORT SPECIALIST VIRGILIO Rx#:[id number] Ancef 2 GM Premix Inj 2 gm In 50 / 50 50 / 50 50 ml @ 100 mls/hr IV.SIG Q8H VIRGILIO Rx#:[id number] Oral 840 / 840 Anesthesia Amount 1700 / 1700 Output: Urine 300 / 300 Estimated Blood Loss 50 / 50 Urine Amount (Catheter) 1050 / 1050 700 / 700 Indwelling Urethral Catheter 1050 / 1050 700 / 700 Wound Drainage 85 / 85 # 1 Anterior Neck RALPH Drain 85 / 85 Other: # Voids 2 Date of Last Bowel Movement 07/30/18 07/30/18 Results Procedures completed during hospitalization: C5-6, C6-7 anterior cervical discectomy, interbody arthodhesis using PEEK cage filled with autologous bone graft, Simplicity plate and screws - Impressions ITS Impressions Cervical Spine X-Ray 07/30/18 00:00 CONCLUSION: Fluoroscopic images demonstrate placement of anterior fusion plate C5-C7 with intervertebral disc devices. Discharge Plan - Discharge Disposition Patient Disposition: Discharge Home - Discharge Condition Condition: Stable - Discharge Order Discharge Orders: Discharge Order (Routine); Ordered 07/31/18 Ordered By: Esthela Hawkins - Physicians Team Primary Care Provider: Rey Arenas Attending Provider: Jose R Toney - Rxs /Orders / Referrals /Forms Prescriptions: New hydrocodone-acetaminophen 10-325 mg Tablet 2 tab PO Q4-6H PRN (Reason: Pain Scale 6 To 10) Qty: 30 RF: 0 Continue anastrozole 1 mg Tablet 1 mg PO DAILY aspirin [Aspirin Low Dose] 81 mg Tablet,Delayed Release (Dr/Ec) 81 mg PO DAILY enalapril maleate 10 mg Tablet 10 mg PO DAILY hydrochlorothiazide 25 mg Tablet 25 mg PO DAILY Referrals: Rey Arenas MD [Primary Care Provider] - See Instructions - Discharge Instructions Patient Printed Instructions: Laminectomy (DC)
--- NOTE | 2018-07-31 11:07 | P.DCO ---
- Physical Therapy Order: Improve ambulation - Home Health Nursing Order: Medical education, Signs/symptoms of disease process, Medication education-adverse effect, Wound care and dressing changes (please see wound care dc orders), Nursing assessment with vital signs - Case Management Consult Yes - Certification I have seen patient Cyn Wright on 07/31/18. My clinical findings support the need for the requested home health care services because: Deconditioned with increased weakness I certify that my clinical findings support that this patient is homebound because: Post-op weakness
[2018-07-31 12:06] VITALS: RESP 18
== END 2018-07-31 13:04 | disposition home health service (06) ==
LOC: HSDC 06:27 → HSDI 06:27 → N05 14:05
PROVIDERS: ADMIT Neurological Surgery; ATTEND Neurological Surgery